=== PATIENT | female | born 1975 | race Caucasian/White ===

== ENCOUNTER → 2016-08-17 | Day surgery (SDC) | payer OTHER ==
--- NOTE | 2016-08-13 16:36 | GHP ---
[f rep st] PREOP HISTORY AND PHYSICAL DATE OF ADMISSION: 08/17/2016 Procedure is 08/17/2016. PLANNED PROCEDURE: Suction, dilation, and curettage for a missed . INDICATIONS: Patient is a 41-year-old 5, para 1-0-4-1, who had a last menstrual period of 0 06/14/2016. She has been following hCGs closely because of recurrent poor outcomes. She h ad a normal rise in hCG, but presented for her viability ultrasound on 08/03/2016 and was measuring size less than dates by 9 days with a heart rate of 96. She had a repeat ultrasound done on 08/10 which showed 4-day growth in the crown-rump length but a decreased heart rate to 72. She had s potting on 08/12 of bright red vaginal bleeding and presented for an ultrasound today, on 08/13, whi ch showed a crown-rump length of 6 weeks 1 day and no cardiac activity. Diagnosis of missed abortio n was made. Condolences were given. Management options were extensively reviewed with the patient, and patient is electing to proceed with a suction dilation and curettage. She plans on following u p with Reproductive Endocrinology and proceeding with in vitro fertilization. Risks and benefits of the procedure were reviewed with the patient. The patient will sign consent form on day of procedu re. 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 MEDICATIONS: vitamins, DHA, Unisom, and Synthroid 150 mcg. SURGICAL HISTORY: Dilation and curettage, dilation and evacuation, tonsillectomy, appendectomy, lip osuction, and some teeth extraction. ALLERGIES: No known drug allergies. SOCIAL HISTORY: Patient is . She lives with her and their daughter. She denies tob acco, alcohol, and drug use. FAMILY MEDICAL HISTORY: Noncontributory. SENIOR BUDGET ANALYST HISTORY: Menarche age 14. Periods every 28 days lasting 2 days. She is a 5 para 1- 0-4-1. In 05/2014, she had a blighted ovum and a dilation and curettage following that. In 04/2015 , she had a spontaneous vaginal delivery at 40 weeks of a 6 pound 12 ounce female. In February 2016 Verifi screen showed was positive for trisomy 18. She underwent a CVS, which confirmed t he diagnosis, and she underwent a dilation and evacuation in February of 2016. In June 2007, she h ad a chemical , and most current is a missed . Patient does have a histo ry of cervical dysplasia and had a LEEP excision of the cervix. Repeat Pap's have been negative. S jakob denies any history of any other sexually transmitted diseases. REVIEW OF SYSTEMS: A 10-point review of systems is negative with the exception of recent vaginal bl eeding. PHYSICAL EXAMINATION: VITAL SIGNS: Stable. GENERAL APPEARANCE: Alert and oriented x3. HEART: Rate is regular/regular. PSYCH: Appropriate affect NECK: Midline trachea and no thyromegaly or masses. ABDOMEN: Soft, nondistended, nontender. EXTREMITIES: No calf tenderness or edema. PELVIC: A mobile, midposition uterus with no adnexal masses. A transvaginal ultrasound confirms a crown-rump length of 6 weeks 1 day with no cardiac activity. Diagnosis of missed was made. LABORATORY DATA: Her blood type is 0 negative. Patient will need RhoGAM. ASSESSMENT/PLAN: A 41-year-old, 5, para 1-0-4-1, with a diagnosis of missed . She will undergo a suction dilation and curettage. Risks and benefits have been reviewed with the patie nt, and patient will sign consent on day of surgery. She will also need RhoGAM on day of surgery. /[id number]/MODL
[~2016-08-17] MED LIST: DEXAMETHASONE 4 MG/ML VIAL ONE; DOXYCYCLINE HYCLATE 100 MG CAP/TAB PO ONE; KETOROLAC 30 MG/1 ML SDV ONE; LIDOCAINE 2% 5 ML SDV ONE; MIDAZOLAM 2 MG/2 ML VIAL ONE; ONDANSETRON 4 MG/2 ML VIAL ONE; PROPOFOL/EMULSION 500 MG/50 ML BOTTLE IV ONE; fentaNYL 100 MCG/2 ML INJ ONE
[2016-08-17 09:51] LABS: % IMMATURE GRANULYOCYTES 0.5 % (0.0-1.1); ABSOLUTE IMMATURE GRANULOCYTES 0.02 10^3/uL (0.00-0.10); ADD DIFF? NO; ADD MORPH? NO; ADD SCAN? NO; ATYPICAL LYMPHOCYTE FLAG 30 (0-99); FRAGMENT RBC FLAG 0 (0-99); HEMATOCRIT 41.7 % (38.0-47.0); HEMOGLOBIN 14.2 g/dL (12.6-16.3); LEFT SHIFT FLG 0 (0-99); LIPEMIA HEMOLYSIS FLAG 90 (0-99); MEAN CELL HEMOGLOBIN 31.4 pg (27.9-34.1); MEAN CELL HEMOGLOBIN CONCENTR. 34.1 g/dL (32.4-36.7); MEAN CELL VOLUME 92.3 fL (81.5-99.8); MEAN PLATELET VOLUME 11.1 fL (8.7-11.7); PLATELET CLUMPS FLAG 0 (0-99); PLATELET COUNT 168 10^3/uL (150-400); RED BLOOD CELL COUNT 4.52 10^6/uL (4.18-5.33); RED CELL DISTRIBUTION WIDTH 12.5 % (11.5-15.2)
--- NOTE | 2016-08-17 12:49 | GOP ---
[f rep st] OPERATIVE REPORT DATE OF OPERATION: 08/17/2016 SURGEON: Kellie Olmedo MD ANESTHESIA: Light general IV anesthesia. ANESTHESIOLOGIST: Lino Rodney M.D. PREOPERATIVE DIAGNOSIS: Missed at 7-8 weeks. POSTOPERATIVE DIAGNOSIS: Missed at 7-8 weeks. PROCEDURE PERFORMED: D and C. FINDINGS: SPECIMENS: Were the products of conception that were sent to [facility] for testing. ESTIMATED BLOOD LOSS: Was 25 mL. INDICATIONS: The patient is a 41-year-old G5, P1, now A4, who was recently diagnosed with a missed AB at 7-8 weeks gestation, but measuring size less than dates, with no cardiac activity. The patient had her first ultrasound on August 03, 2016 showing a pole measuring 9 weeks, smaller than expected dates, with a slow heart rate. A repeat ultrasound 1 week later continued to show a growth delay and further decreased heart rate. The patient did have some vaginal bleeding on August 032016, and an ultrasound was performed on August 13, 2016 which diagnosed a missed AB. The patient d esired confirmation of that today and an ultrasound was done at the bedside with a vaginal probe, wh ich gave the patient confirmation that there was no cardiac activity today. The patient was g iven options as to proceeding, and wanted to proceed with a D and C for definitive management. Risks and benefits were discussed and the consent form was signed. The patient did have a prior diagnosed with trisomy 18 and did want to proceed with [facility] testing with this tissue. DESCRIPTION OF PROCEDURE: The patient was taken to the operating room with SCDs on her lower extrem ities. The patient had received p.o. doxycycline prior to the procedure and had urinated prior to c oming to the operating room. The patient's perineum was prepped and the patient draped in the usual sterile manner for a vaginal procedure. A sterile speculum was used, an atraumatic tenaculum was placed on the anterior lip of the cervix an d gentle traction applied. The cervix was easily dilated to 8.5 Hegar dilator. A #8 tip was used o n the suction machine and several passes were made, obtaining a moderate amount of tissue. When the re was no additional tissue obtained, then the sharp curetting was performed. The uterine cry was f elt throughout the endometrial cavity. No additional tissue was obtained. Gentle curetting was performed. One last pass with the suction was performed, and no additional tis erwin was obtained. There was minimal bleeding. An ultrasound vaginally was performed after the procedure and there was a thin endometrium noted. T here was only scant bleeding noted after the procedure vaginally. The patient was cleaned off, taken out of position, and then was taken to the recovery room in stabl e condition. She was awoken easily. COMPLICATIONS: There were no complications. /[id number]/MODL
== END | disposition home or self-care (01) ==
LOC: FOBOP 08:56
PROVIDERS: ATTEND Obstetrics & Gynecology
PROC: 10D17ZZ Extraction of Products of Conception, Retained, Via Natural or Artificial Opening (ICD-10-PCS; principal; 2016-08-17)
DX: O02.1 Missed abortion (principal); E03.9 Hypothyroidism, unspecified
CPT/HCPCS: J1100; J1885; J2250; J2405; J2704; J3010

== ENCOUNTER → 2016-08-28 | Outpatient (CLI) | payer OTHER | LOC: FIMAGING 08:51 | PROVIDERS: ATTEND Obstetrics & Gynecology | DX: Z12.31 Encounter for screening mammogram for malignant neoplasm of breast (principal); Z80.3 Family history of malignant neoplasm of breast | CPT/HCPCS: G0202 ==

== ENCOUNTER → 2017-05-22 | Outpatient (CLI) | payer OTHER | LOC: BMCIMAGING 12:02 | PROVIDERS: ATTEND Family Medicine | DX: R10.9 Unspecified abdominal pain (principal) ==

== ENCOUNTER → 2017-05-28 | Outpatient (CLI) | payer OTHER | LOC: CIMAGING 15:34 | PROVIDERS: ATTEND Family Medicine | DX: M54.6 Pain in thoracic spine (principal); R10.9 Unspecified abdominal pain; R07.9 Chest pain, unspecified; M54.5 Low back pain | CPT/HCPCS: 71100-PO; 72100-PO ==

== ENCOUNTER → 2017-08-31 | Outpatient (CLI) | payer OTHER | LOC: FIMAGING 08:38 | PROVIDERS: ATTEND Obstetrics & Gynecology | DX: Z12.31 Encounter for screening mammogram for malignant neoplasm of breast (principal) ==

== ENCOUNTER → 2018-09-01 | Outpatient (CLI) | payer OTHER | LOC: FIMAGING 09:02 ==

== ENCOUNTER → 2018-09-12 | Outpatient (CLI) | payer BC | LOC: BRMIMAGING 13:14 ==